=== PATIENT | female | born 1995 | race African-American/Black ===

== ENCOUNTER 2022-04-30 12:19 | Emergency (ER) | payer OTHER ==
[~2022-04-30] VITALS: Ht 167.6 cm; Wt 71.2 kg
--- NOTE | 2022-04-30 12:40 | NUR ---
PT IS IN ROOM #1B. DR DUMONT EVALUATED THE PT.
[2022-04-30] MEDS ORDERED: LORAZEPAM 0.5 MG TABLET PO ONE (14:30)
[2022-04-30] MEDS ORDERED: LORAZEPAM 1 MG TABLET ONE (14:34)
--- NOTE | 2022-04-30 14:58 | NUR ---
PT WAS D/C'd TO HOME. D/C ISTRUCTIONS GIVEN TO THE PT BY DR DUMONT.
[2022-04-30 14:59] VITALS: BP 129/71
[2022-04-30 15:38] LABS: *BILIRUBIN,URIN NEGATIVE (NEGATIVE); *BLOOD, URINE NEGATIVE (NEGATIVE); *CLARITY,URINE CLEAR (CLEAR); *COLOR,URINE YELLOW (YELLOW); *KETONES,URINE NEGATIVE (NEGATIVE); *UROBILINOGEN,URINE 0.2 E.U./dl (NORMAL); LEUKOCYTE ESTERASE ,URINE 2+ (NEGATIVE); NITRITE, URINE NEGATIVE (NEGATIVE); PH,URINE 7.5 (5.0-8.0); UGLUCOSE NEGATIVE (NEGATIVE)
[2022-04-30] MEDS ORDERED: LORA-259 PO (16:28)
== END 2022-04-30 17:17 | disposition left against medical advice (07) ==
LOC: ER 12:19
DX: F41.9 Anxiety disorder, unspecified (principal); R42 Dizziness and giddiness
CPT/HCPCS: 93005; A4663